=== PATIENT | male | born 1955 | race African-American/Black ===

== ENCOUNTER 2019-08-07 00:03 | Emergency (ER) | payer SELFPAY ==
[~2019-08-07] VITALS: Ht 180.3 cm; Wt 55.0 kg
[2019-08-07 02:35] LABS: BASOPHILS % 1.2 % (0.0-2.0); EOSINOPHILS % 1.8 % (0.0-5.0); HEMATOCRIT. 39.2 % (42.0-52.0); LYMPHOCYTES % 16.3 % (20.0-50.0); MEAN CORPUSCULAR HEMOGLOBIN 29.4 pg (28.0-32.0); MEAN CORPUSCULAR VOLUME 88.3 fL (80.0-94.0); MEAN PLATELET VOLUME 7.3 fl (7.4-10.4); MONOCYTES % 7.7 % (2.0-8.0); PLATELET 218 x1000/uL (130-400); RED BLOOD CELL COUNT 4.44 mill/uL (4.7-6.1); RED CELL DISTRIBUTION WIDTH 13.9 % (11.6-14.6)
[2019-08-07 02:42] LABS: CHLORIDE 107 mEq/L (98-107)
[2019-08-07] MEDS ORDERED: IBUPROFEN 600MG TABLET PO ONE (05:00)
[2019-08-07] MEDS ORDERED: ACETAMINOPHEN 500MG TABLET PO ONE (05:00)
[2019-08-07 06:29] VITALS: BP 116/75
== END 2019-08-07 06:32 | disposition home or self-care (01) ==
LOC: ER 00:03
DX: J06.9 Acute upper respiratory infection, unspecified (principal); I49.9 Cardiac arrhythmia, unspecified
CPT/HCPCS: 36415; 71045; 80053; 83880; 84484; 85025; 85610; 93005; 99284; Z7610